=== PATIENT | male | born 1945 | race Caucasian/White ===

== ENCOUNTER → 2017-10-03 | Outpatient (CLI) | payer MEDICARE, BC ==
[~2017-10-03] MED LIST: ASPI-496 PO; CHLO25TA PO; CHOL20002 PO; LISI40TA PO
== END | disposition home or self-care (01) ==
LOC: CFH 14:21
PROVIDERS: ATTEND Nurse Practitioner
DX: M51.26 Other intervertebral disc displacement, lumbar region (principal); M48.061 Spinal stenosis, lumbar region without neurogenic claudication; M41.86 Other forms of scoliosis, lumbar region
CPT/HCPCS: 72148

== ENCOUNTER 2018-05-15 20:30 | Emergency (ER) | payer MEDICARE, BC ==
[~2018-05-15] VITALS: Ht 185.4 cm; Wt 76.3 kg
[~2018-05-15 20:30] MED LIST changes: -CHOL20002 PO; +CHOL200052 PO
[2018-05-15 21:24] LABS: BASOPHILS # (AUTO) 0.01 x10^3/uL (0-0.1); BASOPHILS % (AUTO) 0 % (0-1); EOSINOPHILS % (AUTO) 0 % (1-7); LYMPHOCYTES # (AUTO) 0.36 x10^3/uL (1-3.4); LYMPHOCYTES % (AUTO) 4 % (22-44); MD NO; MEAN CORPUSCULAR HEMOGLOBIN 34.2 pg (27.5-34.5); MEAN CORPUSCULAR HGB CONC 34.5 g/dL (33.2-36.2); MEAN CORPUSCULAR VOLUME 99.2 fL (81-97); MEAN PLATELET VOLUME 8.3 fL (7.4-10.4); MONOCYTES # (AUTO) 0.57 x10^3/uL (0.2-0.8); MONOCYTES % (AUTO) 6 % (2-9); NEUTROPHILS # (AUTO) 8.36 x10^3/uL (1.8-6.8); NEUTROPHILS % (AUTO) 90 % (42-75); PLATELET COUNT 144 x10^3/uL (130-400); RED BLOOD COUNT 4.17 x10^6/uL (4.38-5.82); RED CELL DISTRIBUTION WIDTH 12.2 % (9.4-14.8)
[2018-05-15 21:33] LABS: ALANINE AMINOTRANSFERASE 21 U/L (12-78); ALBUMIN 3.3 g/dL (3.4-5.0); ANION GAP 9 mmol/L (5-15); CALCIUM 8.2 mg/dL (8.5-10.1); CHLORIDE 91 mmol/L (98-107); CREATININE 1.12 mg/dL (0.7-1.3)
[2018-05-15 21:35] LABS: ALKALINE PHOSPHATASE 63 U/L (45-117); TOTAL PROTEIN 6.5 g/dL (6.4-8.2)
[2018-05-15 22:00] VITALS: BP 117/84
[2018-05-15 22:25] LABS: MICROSCOPIC AUTO
[2018-05-15 22:26] LABS: CULTURE INDICATED? NO
[2018-05-15] MEDS ORDERED: ONDANSETRON ODT 4 MG PO ONE (23:30)
[2018-05-15] MEDS ORDERED: ONDANSETRON ODT 4 MG ONE (23:34)
== END 2018-05-16 00:01 | disposition home or self-care (01) ==
LOC: ED 21:36
DX: R11.0 Nausea (principal); R33.9 Retention of urine, unspecified; R31.9 Hematuria, unspecified; E87.1 Hypo-osmolality and hyponatremia; M54.6 Pain in thoracic spine; Z87.891 Personal history of nicotine dependence; Z87.442 Personal history of urinary calculi
CPT/HCPCS: 36415; 80053; 81001; 85025; 99283; Q0162

== ENCOUNTER 2018-05-18 04:47 | Inpatient (IN) | payer MEDICARE, BC ==
[~2018-05-18] VITALS: Ht 182.9 cm; Wt 79.4 kg
[2018-05-18] MEDS ORDERED: ALFU10TA PO (04:55)
--- NOTE | 2018-05-18 05:11 | NUR ---
PT PRESENTED WITH C/O COUGH THAT STATED YESTERDAY AFTERNOON, ABD PAIN, DIARREHA X 5 DAYS. PT STATED HE WAS HERE 3 DAYS AGO FOR SAME AND HAD NEGATIVE COLONOSCOPY, AND D/C'D HOME WITH ZOFRAN. PROVIDED PT WITH GOWN, MONITORS APPLIED, CALL LIGHT WITHIN REACH.
--- NOTE | 2018-05-18 05:25 | NUR ---
IV SITE STARTED, LABS DRAWN.
[2018-05-18 05:54] LABS: ALBUMIN 2.5 g/dL (3.4-5.0); ANION GAP 10 mmol/L (5-15); CALCIUM 8.4 mg/dL (8.5-10.1); CHLORIDE 89 mmol/L (98-107)
[2018-05-18 05:59] LABS: BASOPHILS # (AUTO) 0.01 x10^3/uL (0-0.1); BASOPHILS % (AUTO) 0 % (0-1); EOSINOPHILS # (AUTO) 0.01 x10^3/uL (0-0.4); EOSINOPHILS % (AUTO) 0 % (1-7); LYMPHOCYTES # (AUTO) 0.21 x10^3/uL (1-3.4); LYMPHOCYTES % (AUTO) 2 % (22-44); MD NO; MEAN CORPUSCULAR HGB CONC 34.1 g/dL (33.2-36.2); MEAN CORPUSCULAR VOLUME 99.5 fL (81-97); MEAN PLATELET VOLUME 8.6 fL (7.4-10.4); MONOCYTES # (AUTO) 0.26 x10^3/uL (0.2-0.8); MONOCYTES % (AUTO) 3 % (2-9); NEUTROPHILS % (AUTO) 94 % (42-75); PLATELET COUNT 195 x10^3/uL (130-400); RED BLOOD COUNT 4.32 x10^6/uL (4.38-5.82); RED CELL DISTRIBUTION WIDTH 12.4 % (9.4-14.8)
[2018-05-18 06:00] LABS: ALANINE AMINOTRANSFERASE 35 U/L (12-78); ALKALINE PHOSPHATASE 84 U/L (45-117); BILIRUBIN,TOTAL 0.8 mg/dL (0.2-1.0); TOTAL PROTEIN 6.7 g/dL (6.4-8.2); TROPONIN I < 0.015 ng/mL (0.000-0.045)
--- NOTE | 2018-05-18 06:10 | NUR ---
URINE SAMPLE SENT.
--- NOTE | 2018-05-18 06:22 | NUR ---
PT TO CT
[2018-05-18 06:24] LABS: MICROSCOPIC INDICATED
[2018-05-18] MEDS ORDERED: AZITHROMYCIN 500 MG in SODIUM CHLORIDE 0.9% 250 ML IVPB ONE (06:30)
[2018-05-18] MEDS ORDERED: CEFTRIAXONE PMX 1GM/50ML 50 ML IV ONE (06:30)
[2018-05-18] MEDS ORDERED: SODIUM CHLORIDE 0.9% 1,000ML IVBOLUS ONE (06:30)
[2018-05-18 06:34] LABS: CULTURE INDICATED? NO
--- NOTE | 2018-05-18 06:48 | NUR ---
RECEIVED BEDSIDE REPORT FROM ADEOLA MARTINES.
[2018-05-18] MEDS ORDERED: CEFTRIAXONE PMX 1GM/50ML 50 ML ONE (06:49)
--- NOTE | 2018-05-18 06:50 | NUR ---
REPORT GIVEN TO ADEOLA SAPP
--- NOTE | 2018-05-18 06:54 | NUR ---
BLOOD CULTURES COMPLETED. MEDICATION ADMINISTERED PER EMAR. PT RESTING ON [facility]. FAMILY BEDSIDE. NO NEEDS REQUESTED AT THIS TIME. NO ACUTE DISTRESS NOTED
[2018-05-18] MEDS ORDERED: SODIUM CHLORIDE FLUSH 10ML SYR IVF PRN (08:00)
[2018-05-18] MEDS ORDERED: METRONIDAZOLE PMX 500MG/100ML 100 ML IV ONE (08:00)
--- NOTE | 2018-05-18 08:05 | NUR ---
PT RESTING ON GURNEY. NO ACUTE DISTRESS NOTED. NO NEEDS REQUESTED AT THIS TIME. BEDSIDE. AWAITING ROOM ASSIGNMENT ON FLOOR. PT VERBALIZES UNDERSTANDING REGARDING POC.
--- NOTE | 2018-05-18 08:55 | NUR ---
BEDSIDE REPORT TO ADEOLA WHITNEY
[2018-05-18] MEDS ORDERED: D5%-0.9% NACL 1,000 ML IV SCH (09:00)
[2018-05-18] MEDS ORDERED: ONDANSETRON 2MG/ML, 2ML IVPush PRN (09:00)
[2018-05-18] MEDS ORDERED: ONDANSETRON ODT 4 MG PO PRN (09:00)
[2018-05-18] MEDS ORDERED: LABETALOL 5MG/ML, 20ML IV PRN (09:00)
--- NOTE | 2018-05-18 09:05 | NUR ---
Resting in [facility]. Provided with pillow. Refusing breakfast. No other needs.
[2018-05-18] MEDS: D5%-0.9% NACL 1,000 ML IV SCH ×2 (10:15→18:07)
--- NOTE | 2018-05-18 10:22 | NUR ---
Ambulated with a steady gait to the restroom. UA and stool sample sent to lab. Stool was very black. MD Danielle aware.
[2018-05-18] MEDS ORDERED: MORPHINE SULFATE 4 MG/ML, 1ML ONE (11:18)
[2018-05-18] MEDS: MORPHINE SULFATE 4 MG/ML, 1ML IVPush PRN (11:20)
--- NOTE | 2018-05-18 11:20 | NUR ---
C/O chest wall pain. Morphine admin. No other needs.
[2018-05-18 11:31] LABS: CLOSTRIDIUM DIFFICILE ANTIGEN NEGATIVE; CLOSTRIDIUM DIFFICILE TOXIN NEGATIVE (Negative)
--- NOTE | 2018-05-18 12:05 | NUR ---
Attempted report. ADEOLA Arshad unavailable at this time.
--- NOTE | 2018-05-18 12:15 | NUR ---
Report to ADEOLA Arshad.
[2018-05-18 12:47] VITALS: BP 114/68
[2018-05-18] MEDS ORDERED: PHARMACY MAY ADJ FOR RENAL FX MC PRN (17:30)
[2018-05-18 18:13] LABS: ANION GAP 7 mmol/L (5-15); CALCIUM 8.1 mg/dL (8.5-10.1); CHLORIDE 95 mmol/L (98-107); CREATININE 1.27 mg/dL (0.7-1.3)
[2018-05-18] MEDS ORDERED: POTASSIUM CHLORIDE 20 MEQ TAB.ER.PRT PO ONE (19:00)
[2018-05-18] MEDS: D5%-0.9% NACL+KCL 20MEQ 1,000 ML IV SCH (19:31)
[2018-05-18] MEDS: PIPERACILLIN/TAZO/PMX 3.375GM 50 ML IV SCH (19:32)
[2018-05-18 19:36] VITALS: BP 107/66
[2018-05-18 19:46] LABS: ANION GAP 6 mmol/L (5-15); CALCIUM 8.1 mg/dL (8.5-10.1); CHLORIDE 96 mmol/L (98-107); CREATININE 1.22 mg/dL (0.7-1.3)
[2018-05-19 01:50] VITALS: BP 99/60
[2018-05-19] MEDS: PIPERACILLIN/TAZO/PMX 3.375GM 50 ML IV SCH ×4 (02:38→20:31)
[2018-05-19] MEDS: MORPHINE SULFATE 4 MG/ML, 1ML IVPush PRN ×3 (02:44→20:31)
[2018-05-19 04:38] LABS: BASOPHILS % (AUTO) 0 % (0-1); EOSINOPHILS % (AUTO) 0 % (1-7); LYMPHOCYTES # (AUTO) 0.34 x10^3/uL (1-3.4); LYMPHOCYTES % (AUTO) 6 % (22-44); MD NO; MEAN CORPUSCULAR HEMOGLOBIN 34.4 pg (27.5-34.5); MEAN CORPUSCULAR HGB CONC 34.5 g/dL (33.2-36.2); MEAN CORPUSCULAR VOLUME 99.7 fL (81-97); MEAN PLATELET VOLUME 7.9 fL (7.4-10.4); MONOCYTES # (AUTO) 0.48 x10^3/uL (0.2-0.8); MONOCYTES % (AUTO) 8 % (2-9); NEUTROPHILS # (AUTO) 5.25 x10^3/uL (1.8-6.8); NEUTROPHILS % (AUTO) 86 % (42-75); PLATELET COUNT 171 x10^3/uL (130-400); RED BLOOD COUNT 3.59 x10^6/uL (4.38-5.82); RED CELL DISTRIBUTION WIDTH 12.4 % (9.4-14.8)
[2018-05-19 04:50] LABS: ALANINE AMINOTRANSFERASE 38 U/L (12-78); ALBUMIN 1.9 g/dL (3.4-5.0); ANION GAP 4 mmol/L (5-15); CALCIUM 7.9 mg/dL (8.5-10.1); CHLORIDE 101 mmol/L (98-107); CREATININE 1.08 mg/dL (0.7-1.3)
[2018-05-19 04:52] LABS: ALKALINE PHOSPHATASE 90 U/L (45-117); BILIRUBIN,TOTAL 0.6 mg/dL (0.2-1.0); TOTAL PROTEIN 5.5 g/dL (6.4-8.2)
[2018-05-19] MEDS: D5%-0.9% NACL+KCL 20MEQ 1,000 ML IV SCH ×2 (05:44→21:21)
[2018-05-19 07:34] VITALS: BP 105/63
[2018-05-19] MEDS: ASPIRIN 81 MG TABLET EC PO SCH (08:43)
[2018-05-19] MEDS: CHOLECALCIFEROL 1,000 UNIT TABLET PO SCH (08:43)
[2018-05-19] MEDS ORDERED: SODIUM PHOSPHATE 30 MMOL in SODIUM CHLORIDE 0.9% 500 ML IV ONE (13:00)
[2018-05-19 14:15] VITALS: BP 126/77
[2018-05-19 20:00] VITALS: BP 118/66
[2018-05-20] MEDS: PIPERACILLIN/TAZO/PMX 3.375GM 50 ML IV SCH ×4 (01:59→20:27)
[2018-05-20 02:00] VITALS: BP 104/56
[2018-05-20 04:26] LABS: BASOPHILS # (AUTO) 0.02 x10^3/uL (0-0.1); BASOPHILS % (AUTO) 0 % (0-1); EOSINOPHILS # (AUTO) 0.03 x10^3/uL (0-0.4); EOSINOPHILS % (AUTO) 1 % (1-7); LYMPHOCYTES # (AUTO) 0.56 x10^3/uL (1-3.4); LYMPHOCYTES % (AUTO) 10 % (22-44); MD NO; MEAN CORPUSCULAR HEMOGLOBIN 33.2 pg (27.5-34.5); MEAN CORPUSCULAR HGB CONC 33.5 g/dL (33.2-36.2); MEAN CORPUSCULAR VOLUME 99.2 fL (81-97); MEAN PLATELET VOLUME 7.8 fL (7.4-10.4); MONOCYTES % (AUTO) 9 % (2-9); NEUTROPHILS # (AUTO) 4.72 x10^3/uL (1.8-6.8); NEUTROPHILS % (AUTO) 81 % (42-75); PLATELET COUNT 245 x10^3/uL (130-400); RED BLOOD COUNT 3.79 x10^6/uL (4.38-5.82); RED CELL DISTRIBUTION WIDTH 12.8 % (9.4-14.8)
[2018-05-20 04:31] LABS: ANION GAP 7 mmol/L (5-15); CALCIUM 8.1 mg/dL (8.5-10.1); CHLORIDE 100 mmol/L (98-107); CREATININE 1.04 mg/dL (0.7-1.3)
[2018-05-20 07:05] VITALS: BP 122/76
[2018-05-20] MEDS: D5%-0.9% NACL+KCL 20MEQ 1,000 ML IV SCH ×2 (07:55→19:21)
[2018-05-20] MEDS: CHOLECALCIFEROL 1,000 UNIT TABLET PO SCH (09:55)
[2018-05-20] MEDS: ASPIRIN 81 MG TABLET EC PO SCH (09:55)
[2018-05-20] MEDS ORDERED: POTASSIUM CHLORIDE 40 MEQ in SODIUM CHLORIDE 0.9% 500 ML IV ONE (13:00)
[2018-05-20] MEDS ORDERED: SODIUM PHOSPHATE 30 MMOL in SODIUM CHLORIDE 0.9% 500 ML IV ONE (13:00)
[2018-05-20 13:53] VITALS: BP 113/64
[2018-05-20 16:30] LABS: OCCULT BLOOD POSITIVE (NEGATIVE)
[2018-05-20] MEDS: MORPHINE SULFATE 4 MG/ML, 1ML IVPush PRN (17:24)
[2018-05-20 20:00] VITALS: BP 128/66
[2018-05-21 02:00] VITALS: BP 133/66
[2018-05-21] MEDS: PIPERACILLIN/TAZO/PMX 3.375GM 50 ML IV SCH ×4 (02:55→20:07)
[2018-05-21] MEDS: D5%-0.9% NACL+KCL 20MEQ 1,000 ML IV SCH ×2 (04:18→21:05)
[2018-05-21 06:52] LABS: ANION GAP 6 mmol/L (5-15); CHLORIDE 100 mmol/L (98-107); CREATININE 0.97 mg/dL (0.7-1.3)
[2018-05-21 06:59] LABS: BASOPHILS # (AUTO) 0.01 x10^3/uL (0-0.1); BASOPHILS % (AUTO) 0 % (0-1); EOSINOPHILS # (AUTO) 0.12 x10^3/uL (0-0.4); EOSINOPHILS % (AUTO) 2 % (1-7); LYMPHOCYTES # (AUTO) 0.55 x10^3/uL (1-3.4); LYMPHOCYTES % (AUTO) 9 % (22-44); MD NO; MEAN CORPUSCULAR HEMOGLOBIN 34.1 pg (27.5-34.5); MEAN CORPUSCULAR HGB CONC 34.3 g/dL (33.2-36.2); MEAN CORPUSCULAR VOLUME 99.3 fL (81-97); MEAN PLATELET VOLUME 7.9 fL (7.4-10.4); MONOCYTES # (AUTO) 0.62 x10^3/uL (0.2-0.8); MONOCYTES % (AUTO) 10 % (2-9); NEUTROPHILS # (AUTO) 4.89 x10^3/uL (1.8-6.8); NEUTROPHILS % (AUTO) 79 % (42-75); PLATELET COUNT 226 x10^3/uL (130-400); RED BLOOD COUNT 3.22 x10^6/uL (4.38-5.82); RED CELL DISTRIBUTION WIDTH 12.7 % (9.4-14.8)
[2018-05-21 07:12] VITALS: BP 127/68
[2018-05-21] MEDS ORDERED: POTASSIUM CHLORIDE IV ONE (08:00)
[2018-05-21] MEDS ORDERED: SODIUM CHLORIDE 0.9% IV ONE (08:00)
[2018-05-21] MEDS: ASPIRIN 81 MG TABLET EC PO SCH (08:40)
[2018-05-21] MEDS: CHOLECALCIFEROL 1,000 UNIT TABLET PO SCH (08:41)
[2018-05-21] MEDS ORDERED: MAGNESIUM SULFATE 3 GM in SODIUM CHLORIDE 0.9% 100 ML IV ONE (14:30)
[2018-05-21 14:32] VITALS: BP 130/76
[2018-05-21 20:00] VITALS: BP 135/70
[2018-05-21] MEDS: NEUTRA PHOS K 250 MG TABLET PO SCH (20:12)
[2018-05-21] MEDS: PANTOPRAZOLE 40 MG IV IVPush SCH (20:12)
[2018-05-21] MEDS: DOXYCYCLINE 100 MG in DEXTROSE 5% 250 ML IV SCH (21:05)
[2018-05-22 02:00] VITALS: BP 128/69
[2018-05-22] MEDS: PIPERACILLIN/TAZO/PMX 3.375GM 50 ML IV SCH ×4 (02:32→21:44)
[2018-05-22 06:11] LABS: BASOPHILS % (AUTO) 0 % (0-1); EOSINOPHILS # (AUTO) 0.07 x10^3/uL (0-0.4); EOSINOPHILS % (AUTO) 1 % (1-7); LYMPHOCYTES # (AUTO) 0.54 x10^3/uL (1-3.4); LYMPHOCYTES % (AUTO) 10 % (22-44); MD NO; MEAN CORPUSCULAR HEMOGLOBIN 33.7 pg (27.5-34.5); MEAN CORPUSCULAR HGB CONC 34.4 g/dL (33.2-36.2); MEAN CORPUSCULAR VOLUME 98.1 fL (81-97); MEAN PLATELET VOLUME 7.5 fL (7.4-10.4); MONOCYTES # (AUTO) 0.37 x10^3/uL (0.2-0.8); MONOCYTES % (AUTO) 7 % (2-9); NEUTROPHILS % (AUTO) 82 % (42-75); PLATELET COUNT 254 x10^3/uL (130-400); RED BLOOD COUNT 3.34 x10^6/uL (4.38-5.82); RED CELL DISTRIBUTION WIDTH 12.9 % (9.4-14.8)
[2018-05-22 06:23] LABS: CHLORIDE 101 mmol/L (98-107)
[2018-05-22 06:24] LABS: HEMOGLOBIN A1C 6.4 % (4.2-6.3)
[2018-05-22 06:59] LABS: ANION GAP 6 mmol/L (5-15); CALCIUM 8.1 mg/dL (8.5-10.1); CREATININE 0.94 mg/dL (0.7-1.3); THYROID STIMULATING HORMONE 0.292 mIU/L (0.358-3.740)
[2018-05-22] MEDS: D5%-0.9% NACL+KCL 20MEQ 1,000 ML IV SCH ×2 (08:30→17:33)
[2018-05-22] MEDS: NEUTRA PHOS K 250 MG TABLET PO SCH ×2 (08:31→21:44)
[2018-05-22] MEDS: PANTOPRAZOLE 40 MG IV IVPush SCH ×2 (08:31→21:44)
[2018-05-22] MEDS: CHOLECALCIFEROL 1,000 UNIT TABLET PO SCH (08:31)
[2018-05-22] MEDS: ASPIRIN 81 MG TABLET EC PO SCH (08:31)
[2018-05-22 08:46] VITALS: BP 142/71
[2018-05-22] MEDS ORDERED: POTASSIUM CHLORIDE 20 MEQ TAB.ER.PRT PO ONE (09:00)
[2018-05-22] MEDS: DOXYCYCLINE 100 MG in DEXTROSE 5% 250 ML IV SCH ×2 (09:36→22:23)
[2018-05-22 13:05] VITALS: BP 129/73
[2018-05-22 16:48] LABS: ANION GAP 7 mmol/L (5-15); CALCIUM 7.9 mg/dL (8.5-10.1); CHLORIDE 102 mmol/L (98-107); CREATININE 0.85 mg/dL (0.7-1.3)
[2018-05-22] MEDS ORDERED: POTASSIUM CHLORIDE 60 MEQ in SODIUM CHLORIDE 0.9% 1,000 ML IV ONE (19:00)
[2018-05-22 20:25] VITALS: BP 126/72
[2018-05-23 03:31] VITALS: BP 134/75
[2018-05-23] MEDS: PIPERACILLIN/TAZO/PMX 3.375GM 50 ML IV SCH ×2 (03:55→08:49)
[2018-05-23 05:34] LABS: ALBUMIN 1.9 g/dL (3.4-5.0); ANION GAP 7 mmol/L (5-15); CALCIUM 7.9 mg/dL (8.5-10.1); CHLORIDE 106 mmol/L (98-107); CREATININE 0.89 mg/dL (0.7-1.3)
[2018-05-23 05:37] LABS: FREE T4 (FREE THYROXINE) 1.74 ng/dL (0.76-1.46)
[2018-05-23] MEDS ORDERED: POTASSIUM CHLORIDE 10 MEQ TABLET.ER PO SCH (07:30)
[2018-05-23 07:40] VITALS: BP 132/73
[2018-05-23] MEDS: NEUTRA PHOS K 250 MG TABLET PO SCH (08:46)
[2018-05-23] MEDS: CHOLECALCIFEROL 1,000 UNIT TABLET PO SCH (08:46)
[2018-05-23] MEDS: ASPIRIN 81 MG TABLET EC PO SCH (08:46)
[2018-05-23] MEDS: PANTOPRAZOLE 40 MG IV IVPush SCH (08:49)
[2018-05-23] MEDS: DOXYCYCLINE 100 MG in DEXTROSE 5% 250 ML IV SCH (09:07)
[2018-05-23] MEDS ORDERED: L.AC1CAP6 PO (11:05)
[2018-05-23] MEDS ORDERED: AMOX1TAB64 PO (11:05)
[2018-05-23] MEDS ORDERED: DOXY100T10 PO (11:05)
[2018-05-23] MEDS ORDERED: PANT40TA5 PO (11:05)
== END 2018-05-23 12:09 | disposition home or self-care (01) | DRG 377 ==
LOC: ED 05:38 → EDIP 07:55 → 4EST 12:39 → DCLOUNGE 05-23 11:50
PROVIDERS: ADMIT Hospitalist; ATTEND Hospitalist
DX: K57.21 Diverticulitis of large intestine with perforation and abscess with bleeding (principal); J15.9 Unspecified bacterial pneumonia; E87.1 Hypo-osmolality and hyponatremia; N17.9 Acute kidney failure, unspecified; D75.89 Other specified diseases of blood and blood-forming organs; E27.9 Disorder of adrenal gland, unspecified; E83.39 Other disorders of phosphorus metabolism; E83.42 Hypomagnesemia; E87.6 Hypokalemia; F10.20 Alcohol dependence, uncomplicated; Y90.9 Presence of alcohol in blood, level not specified; F17.200 Nicotine dependence, unspecified, uncomplicated; I10 Essential (primary) hypertension; Z80.1 Family history of malignant neoplasm of trachea, bronchus and lung; Z82.3 Family history of stroke; Z85.46 Personal history of malignant neoplasm of prostate; Z87.442 Personal history of urinary calculi; R09.02 Hypoxemia; M47.9 Spondylosis, unspecified
CPT/HCPCS: 36415; 71045; 74176; 80048; 80053; 81001; 82040; 82272; 82607; 83036; 83605; 83690; 83735; 84100; 84145; 84439; 84443; 84484; 85014; 85018; 85025; 87040; 87205; 87324; 93005; 96365; 99285; G0378; J0456; J0696; J2543; J3475; J3480; J7042; J7060; C9113; J7030; J7040; J7050

== ENCOUNTER → 2019-05-26 | Outpatient (CLI) | payer MEDICARE, BC ==
[~2019-05-26] MED LIST changes: +ALFU10TA PO; +AMOX1TAB64 PO; +DOXY100T23 PO; +GADOTERATE 10 MMOL/20 ML VIAL ONE; +L.AC1CAP6 PO; +PANT40TA5 PO
== END | disposition home or self-care (01) ==
LOC: CFH 09:52
PROVIDERS: ATTEND Anesthesiology
DX: R19.09 Other intra-abdominal and pelvic swelling, mass and lump (principal); R16.1 Splenomegaly, not elsewhere classified; N28.89 Other specified disorders of kidney and ureter
CPT/HCPCS: 74183; A9575

== ENCOUNTER 2020-12-03 08:32 | Outpatient (CLI) | payer MEDICARE, BC ==
[~2020-12-03 08:32] MED LIST changes: -GADOTERATE 10 MMOL/20 ML VIAL ONE; -LISI40TA PO; +LISI40TA9 PO; -PANT40TA5 PO; +PANT40TA6 PO
== END 2020-12-03 23:59 | disposition home or self-care (01) ==
LOC: RAD 08:32
PROVIDERS: ATTEND Physician Assistant
DX: K21.00 Gastro-esophageal reflux disease with esophagitis, without bleeding (principal); K44.9 Diaphragmatic hernia without obstruction or gangrene; K31.89 Other diseases of stomach and duodenum; M79.89 Other specified soft tissue disorders
CPT/HCPCS: 74240